=== PATIENT | male | born 1995 | race Two or more races ===

== ENCOUNTER 2023-12-06 01:00 | Emergency (ER) | payer OTHER ==
[~2023-12-06] VITALS: Ht 177.8 cm; Wt 111.5 kg
[2023-12-06 01:17] VITALS: BP 120/62; PULSE 56; RESP 18; TEMP 98.6; O2SAT 100
[2023-12-06] MEDS ORDERED: CETITAB29 PO (02:29)
[2023-12-06] MEDS ORDERED: IBUP-1456 PO (02:29)
[2023-12-06] MEDS ORDERED: CLIN1CAP70 PO (02:29)
[2023-12-06] MEDS ORDERED: PRED20TA2 PO (02:29)
[2023-12-06] MEDS: methylPREDNISolone SOD SUCC 125 MG/2 ML VL IM ONE (02:53)
[2023-12-06] MEDS: cefTRIAXone SOD 1,000 MG VL IM ONE (02:53)
[2023-12-06] MEDS: TETANUS-DIPTH-ACEL PERTUSSIS 0.5ML SYR Tdap IM ONE (02:55)
== END 2023-12-06 02:56 | disposition home or self-care (01) ==
LOC: ER 01:00
DX: S00.06XA Insect bite (nonvenomous) of scalp, initial encounter (principal); F12.10 Cannabis abuse, uncomplicated; W57.XXXA Bitten or stung by nonvenomous insect and other nonvenomous arthropods, initial encounter; Y93.89 Activity, other specified; Y92.89 Other specified places as the place of occurrence of the external cause; Y99.8 Other external cause status
CPT/HCPCS: 90471; 90715; 96372; 99284; J0696; J2919